=== PATIENT | male | born 1975 | race Caucasian/White ===

== ENCOUNTER 2018-04-14 20:30 | Emergency (ER) | payer OTHER, MEDICAID, SELFPAY ==
[2018-04-14 20:37] VITALS: BP 193/108; PULSE 91; RESP 18; TEMP 37.1; O2SAT 95
--- NOTE | 2018-04-14 20:43 | DI.RAD.S_ITS ---
PROCEDURE: XR CHEST 1V INDICATIONS: chest pain TECHNIQUE: One view of the chest was acquired. COMPARISON: [facility], , CHEST 2 VIEW, 09/11/2007, 11:55. FINDINGS: Surgical changes and devices: Cervical fusion hardware. Lungs and pleura: Lungs are clear. No pleural effusions or pneumothorax. Mediastinum: Mediastinal contours appear normal. Heart size is normal. Bones and chest wall: No suspicious bony lesions. Overlying soft tissues appear unremarkable. IMPRESSION: No acute cardiopulmonary disease. Dictated by: Kimberly Duvall M.D. on 04/14/2018 at 21:43 Approved by: Kimberly Duvall M.D. on 04/14/2018 at 21:43
--- NOTE | 2018-04-14 20:48 | ED.CHESTPAIN ---
HPI - Chest Pain General Chief Complaint: Chest Pain Stated Complaint: states Chest Pains Time Seen by Provider: 04/14/18 20:48 Source: patient Mode of arrival: ambulatory Limitations: no limitations History of Present Illness HPI narrative: The patient presents with upper abdominal and xiphoid level chest pain. Pain started yesterday. He has pain with inspiration. He has a smoker with a smoker's cough. His cough is nonproductive. He has no radiation of chest pain to the upper chest, arm or back. He has no cardiac history. He is a smoker, but has no chronic respiratory illness. He drinks several drinks of alcohol daily. He has no history of liver disease or PUD. The epigastric pain is new and significantly uncomfortable. He has no fever or chills. There is no nausea or emesis. Related Data Home Medications Medication Instructions Recorded Confirmed ibuprofen 800 mg PO BID 04/14/18 04/14/18 nadolol 20 mg PO DAILY 04/14/18 Previous Rx's Medication Instructions Recorded trazodone 50 mg tablet 100 mg PO HS PRN #60 tab 09/20/17 ranitidine HCl [Zantac] 300 mg PO BID #120 tab 04/15/18 Allergies Allergy/AdvReac Type Severity Reaction Status Date / Time varenicline [From CHANTIX] AdvReac Intermediate SUICIDAL Verified 04/14/18 20:59 Review of Systems Review of Systems ROS Unobtainable: All systems reviewed & are unremarkable except as noted in HPI and below Constitutional Denies chills, Denies fever(s), Denies lethargy and Denies weakness Eyes Denies change in vision, Denies eye discharge, Denies irritation and Denies loss of vision Cardiovascular Reports as per HPI, Reports chest pain, Denies irregular heart rhythm, Denies lightheadedness, Denies palpitations, Denies dyspnea, Denies dyspnea on exertion and Denies orthopnea Respiratory Denies cough, Denies dyspnea, Denies dyspnea on exertion and Denies wheezing Gastrointestinal Gastrointestinal: Reports as per HPI, Reports abdominal pain, Denies change in bowel habits, Denies diarrhea, Denies nausea and Denies vomiting Genitourinary Denies dysuria Musculoskeletal Denies back pain Integumentary/Breasts Denies pruritus, Denies erythema, Denies rash and Denies wounds Neurologic Denies loss of vision and Denies weakness Endocrine Denies palpitations Hematologic/Lymphatic Denies easy bruising Allergic/Immunologic Denies wheezing [facility] Medical History Essential hypertension (Chronic 11/29/16) 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) Vitamin D deficiency (Chronic 03/07/17) Mixed 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/17) ADHD (attention deficit hyperactivity disorder) (Chronic Unknown) Anxiety (Chronic Unknown) Cervical spine disease (Chronic Unknown) Chronic back pain (Chronic Unknown) Herpes (Chronic Unknown) Hypertension (Chronic Unknown) Hypertriglyceridemia (Chronic Unknown) Migraines (Chronic Unknown) MRSA (methicillin resistant Staphylococcus aureus) (Resolved Unknown) Surgical History History of neck surgery (Resolved) History of back surgery (Resolved 2000) Hx of neck surgery (Resolved ~2009) Family History Father Hypertension Social History Smoking Status: Current every day smoker Tobacco: How many years used: 20 quit status: considering quitting (Patient stated I was given a smoking cessation handout last time I was here.) second hand exposure: No alcohol intake: current (hard liquor once a month when I watch [employer].) substance use type: marijuana (once or twice a week at the most. It depend on my pain level.) Family History Father Hypertension Social History Smoking Status: Current every day smoker Tobacco: How many years used: 20 quit status: considering quitting (Patient stated I was given a smoking cessation handout last time I was here.) second hand exposure: No alcohol intake: current (hard liquor once a month when I watch [place] fights.) substance use type: marijuana (once or twice a week at the most. It depend on my pain level.) Exam Initial Vital Signs Initial Vital Signs: Vital Signs Temperature 98.7 F 04/14/18 20:37 Pulse Rate 91 H 04/14/18 20:37 Respiratory Rate 18 04/14/18 20:37 Blood Pressure 193/108 H 04/14/18 20:37 Pulse Oximetry 95 04/14/18 20:37 Const General: cooperative and well developed Nutritional Appearance: well nourished Orientation: alert, awake and oriented x3 HENMT Head: normocephalic and atraumatic Nose: external nose normal Face and sinus: face symmetric Mouth: oral mucosae normal and moist mucous membranes Teeth and gingiva: dentition normal Throat: posterior oropharynx normal, tonsils normal and uvula midline Eyes General: appearance normal, both eyes and all related structures Eyelids: eyelids normal Conjunctivae: conjunctivae normal Sclera: sclerae normal ( no icterus) Pupils: PERRL EOM: EOM intact bilaterally Neck Thyroid: nontender Lymphatic: No lymphadenopathy Chest Chest: normal inspection of the chest Resp Effort & Inspection: normal respiratory effort, able to speak in complete sentences, no respiratory distress and no use of accessory muscles Auscultation: clear to auscultation bilaterally, no rales, no rhonchi and no wheezes Cardio Rate: regular rate Rhythm: regular rhythm Heart Sounds: no click, no gallops, no murmurs and no rubs Pulses: normal peripheral pulses GI Inspection: non-distended Palpation: soft, no hepatosplenomegaly and tender ( epigastric tenderness with mild guarding, no rebound.) Auscultation: normal bowel sounds Back/Spine/Pelvis Back: No CVA tenderness Skin General: no rashes or lesions noted, No jaundice and No petechiae Neuro General: alert, oriented x3, gait normal and no focal motor deficits Speech: speech normal Extrem General: full ROM, no clubbing, cyanosis or edema, no pedal edema and no calf tenderness Course Course Narrative: The patient was initially giving Protonix. I did give him narcotics to help alleviate the pain. Prior to discharge the pain is now resolved. his primary source of discomfort is probably gastritis. The ultrasound did reveal fatty liver. Orders Ordered: ED Orders 04/14/18 20:43 XR chest 1V Stat EKG-12 Lead Stat 04/14/18 20:55 Complete Blood Count AUTO DIFF Stat Comprehensive Metabolic Panel Stat Lipase Stat Partial Thromboplastin Time Stat Prothrombin Time INR Stat Troponin & CK Cardiac Panel Stat 04/15/18 00:58 US abdomen complete Stat Discontinued Medications Aspirin (Aspirin Chew) 324 mg PO NOW ONE Stop: 04/14/18 20:44 Last Admin: 04/14/18 20:46 Dose: Not Given Ketorolac Tromethamine (Toradol) 30 mg IV NOW ONE Stop: 04/14/18 20:48 Last Admin: 04/14/18 20:59 Dose: 30 mg Metoclopramide HCl (Reglan) 10 mg IV NOW ONE Stop: 04/15/18 02:36 Last Admin: 04/15/18 02:39 Dose: 10 mg Morphine Sulfate (Morphine) 4 mg IV NOW ONE Stop: 04/14/18 22:22 Last Admin: 04/14/18 22:58 Dose: 4 mg Morphine Sulfate (Morphine) 4 mg IV NOW ONE Stop: 04/15/18 00:59 Last Admin: 04/15/18 01:07 Dose: 4 mg Ondansetron HCl (Zofran) 4 mg IV NOW ONE Stop: 04/14/18 22:56 Last Admin: 04/14/18 22:58 Dose: 4 mg Pantoprazole Sodium (Protonix) 40 mg IV NOW ONE Stop: 04/14/18 20:47 Last Admin: 04/14/18 20:59 Dose: 40 mg Vital Signs - 8 hr 04/14/18 21:27 04/14/18 22:00 04/14/18 22:37 Temperature Pulse Rate 80 77 82 Respiratory Rate 18 14 18 Blood Pressure [Left Arm] 170/102 H 179/107 H 180/108 H Pulse Oximetry 98 98 98 04/14/18 23:30 04/15/18 00:05 04/15/18 00:32 Temperature Pulse Rate 89 77 75 Respiratory Rate 20 17 16 Blood Pressure [Left Arm] 154/91 H 163/107 H 158/98 H Pulse Oximetry 99 97 98 04/15/18 02:11 04/15/18 04:22 Temperature 97.8 F Pulse Rate 81 80 Respiratory Rate 16 16 Blood Pressure [Left Arm] 170/105 H 162/110 H Pulse Oximetry 97 98 MDM - Chest Pain Lab Data Result diagrams: 04/14/18 20:55 04/14/18 20:55 Lab Results 04/14/18 04/14/18 04/14/18 Range/Units 20:55 20:55 20:55 WBC 12.3 H (4.5-11.0) X10^3/uL RBC 5.57 (4.5-5.9) X10^6/uL Hgb 18.7 H (13.5-17.5) g/dL Hct 53.7 H (41-53) % MCV 96.3 (80-100) fL MCH 33.6 (26-34) PG MCHC 34.9 (30-36) % RDW 12.2 (11.6-14.8) % Plt Count 156 (150-400) X10^3/uL Neut % (Auto) Not Reportable Lymph % (Auto) Not Reportable [place] % (Auto) Not Reportable Eos % (Auto) Not Reportable Baso % (Auto) Not Reportable Lymph # (Auto) Not Reportable [place] # (Auto) Not Reportable Baso # (Auto) Not Reportable Seg Neutrophils % 72.0 H (38-70) % Band Neutrophils % 6.0 (3-7) % Lymphocytes % (Manual) 19.0 L (25-45) % Monocytes % (Manual) 1.0 L (2-11) % Eosinophils % (Manual) 2.0 (2-4) % RBC Morphology Normal morphology PT 10.7 (10.1-12.7) SECONDS INR 0.9 (0.9-1.3) APTT 30 (26.4-36.2) SECONDS Sodium 135 L (137-145) mmol/L Potassium 4.5 (3.4-5.1) mmol/L Chloride 101 (98-107) mmol/L Carbon Dioxide 20 L (22-32) mmol/L BUN 14 (9-20) mg/dL Creatinine 0.80 (0.66-1.25) mg/dL Estimated GFR > 60.0 (>60) mL/min BUN/Creatinine Ratio 17.5 (6-22) Glucose 111 H (70-100) mg/dL Calcium 8.4 (8.4-10.2) mg/dL Total Bilirubin 0.9 (0.2-1.3) mg/dL AST 53 (17-59) IU/L ALT 46 (21-72) IU/L Alkaline Phosphatase 104 (38-126) U/L Total Creatine Kinase 158 (55-170) U/L CK-MB (CK-2) 3.41 H (<2.37) ng/mL CK-MB (CK-2) Rel Index 2.2 (1.5-5.0) % Troponin I < 0.012 (0.01-0.034) ng/mL Total Protein 7.8 (6.3-8.2) g/dL Albumin 4.4 (3.5-5.0) g/dL Globulin 3.4 (1.7-4.1) g/dL Albumin/Globulin Ratio 1.3 (1.0-2.8) Lipase 289 (23-300) U/L Imaging Data abdominal ultrasound:: Radiologist's impression: fatty liver. Normal gallbladder. No significant abnormalities. ECG Data Attestation: I personally reviewed and interpreted this ECG as follows: ( normal sinus rhythm rate 81 bpm. Minimal criteria for LVH. No acute ST T wave changes. Normal intervals. No ectopy.) Discharge Plan Departure Patient Disposition: Home Clinical Impression: Fatty liver Gastritis Qualifiers: Gastritis type: unspecified gastritis Chronicity: acute Gastritis bleeding: without bleeding Qualified Code(s): K29.00 - Acute gastritis without bleeding Instructions: DI for Gastritis Activity Restrictions/Additional Instructions: I recommended to avoid alcohol intake. I would also recommend a low-fat diet. Zantac 300 mg 2 times daily. Recheck with her doctor in about 1 month. Return here if obviously worse. Prescriptions: New ranitidine HCl [Zantac] 150 mg tablet 300 mg PO BID Qty: 120 RF: 0 No Action trazodone 50 mg tablet 100 mg PO HS PRN (Reason: insomnia) Qty: 60 RF: 0 ibuprofen 800 mg Tablet 800 mg PO BID RF: 0 nadolol 20 mg tablet 20 mg PO DAILY RF: 0 Referrals: Diana Arndt MD [Primary Care Provider] -
[2018-04-14] MEDS: PANTOPRAZOLE 40 MG VIAL IV (20:59)
[2018-04-14] MEDS: KETOROLAC 60 MG/2 ML VIAL 30 MG IV (20:59)
[2018-04-14 21:11] LABS: INR 0.9 (0.9-1.3)
[2018-04-14 21:14] LABS: PTT Partial Thromboplastin Tim 30 SECONDS (26.4-36.2)
[2018-04-14 21:15] LABS: Alanine Aminotransferase 46 IU/L (21-72); Albumin 4.4 g/dL (3.5-5.0); Albumin Globulin Ratio 1.3 (1.0-2.8); Alkaline Phosphatase 104 U/L (38-126); Aspartate Aminotransferase 53 IU/L (17-59); BUN Creatinine Ratio 17.5 (6-22); Bilirubin Total 0.9 mg/dL (0.2-1.3); Blood Urea Nitrogen 14 mg/dL (9-20); Calcium 8.4 mg/dL (8.4-10.2); Carbon Dioxide 20 mmol/L (22-32); Chloride 101 mmol/L (98-107); Creatine Kinase 158 U/L (55-170); Estimated Glomerular Filt Rate > 60.0 mL/min (>60); Globulin 3.4 g/dL (1.7-4.1); Glucose 111 mg/dL (70-100); Lipase 289 U/L (23-300); Sodium 135 mmol/L (137-145); Total Protein 7.8 g/dL (6.3-8.2)
[2018-04-14 21:19] LABS: HEMOLYSIS 206 (0-50)
[2018-04-14 21:21] LABS: Potassium 4.5 mmol/L (3.4-5.1)
[2018-04-14 21:23] LABS: Prothrombin Time 10.7 SECONDS (10.1-12.7)
[2018-04-14 21:27] VITALS: BP 170/102; PULSE 80; RESP 18; O2SAT 98
[2018-04-14 21:27] LABS: Troponin I < 0.012 ng/mL (0.01-0.034)
[2018-04-14 21:30] LABS: CKMB % Relative Index 2.2 % (1.5-5.0); Creatine Kinase MB 3.41 ng/mL (<2.37)
[2018-04-14 22:00] VITALS: BP 179/107; PULSE 77; RESP 14; O2SAT 98
[2018-04-14 22:17] LABS: Hematocrit 53.7 % (41-53); Hemoglobin 18.7 g/dL (13.5-17.5); Platelet Count 156 X10^3/uL (150-400); Red Blood Cell Count 5.57 X10^6/uL (4.5-5.9)
[2018-04-14 22:18] LABS: Mean Corpuscular HGB Conc 34.9 % (30-36); Mean Corpuscular Hemoglobin 33.6 PG (26-34); Mean Corpuscular Volume 96.3 fL (80-100); Red Cell Distribution Width 12.2 % (11.6-14.8)
[2018-04-14 22:19] LABS: Add Manual Diff / Slide Review YES; White Blood Cell Count 12.3 X10^3/uL (4.5-11.0)
[2018-04-14 22:37] VITALS: BP 180/108; PULSE 82; RESP 18; O2SAT 98
[2018-04-14] MEDS: ONDANSETRON 4 MG/2 ML INJ IV (22:58)
[2018-04-14] MEDS: MORPHINE 4 MG/ML INJ IV (22:58)
[2018-04-14 23:08] LABS: RBC Morphology Normal Morphology
[2018-04-14 23:30] VITALS: BP 154/91; PULSE 89; RESP 20; O2SAT 99
[2018-04-15 00:05] VITALS: BP 163/107; PULSE 77; RESP 17; O2SAT 97
[2018-04-15 00:32] VITALS: BP 158/98; PULSE 75; RESP 16; O2SAT 98
--- NOTE | 2018-04-15 00:58 | DI.US.S_ITS ---
PROCEDURE: US ABDOMEN COMPLETE INDICATIONS: EPIGASTRIC PAIN; ELEVATED LFTS TECHNIQUE: Real-time scanning was performed of the abdominal and retroperitoneal organs, with image documentation. COMPARISON: None. FINDINGS: Liver: Liver is normal in size and increased in echogenicity. Gallbladder: No gallstones, gallbladder wall thickening, or pericholecystic fluid. Biliary ducts: Intrahepatic bile ducts are non-dilated. Extrahepatic bile duct caliber measures 6 mm. Normal is 6-7 mm or less in diameter, or 10 mm or less post-cholecystectomy. Pancreas: Not well-seen due to bowel gas. Spleen: Spleen is normal in size and homogeneous in echotexture. Kidneys: Right kidney measures 11.6 cm long; left kidney measures 1.1 cm long. No hydronephrosis. Aorta: Not well-seen due to bowel gas. Iliacs: Not well-seen due to bowel gas. IVC: Not well-seen. Miscellaneous: No free abdominal fluid. IMPRESSION: 1. Limited study demonstrates no definite acute sonographic abnormality in the abdomen. 2. No evidence of cholelithiasis or cholecystitis. 3. Increased hepatic echogenicity compatible with steatosis. Dictated by: Delmar Mcqueen M.D. on 04/15/2018 at 13:26 Approved by: Delmar Mcqueen M.D. on 04/15/2018 at 13:27
[2018-04-15] MEDS: MORPHINE 4 MG/ML INJ IV (01:07)
[2018-04-15 02:11] VITALS: BP 170/105; PULSE 81; RESP 16; O2SAT 97
[2018-04-15] MEDS: METOCLOPRAMIDE 10 MG/2 ML INJ IV (02:39)
[2018-04-15 04:22] VITALS: BP 162/110; PULSE 80; RESP 16; TEMP 36.6; O2SAT 98
[2018-04-15 04:51] VITALS: BP 162/110; PULSE 80; RESP 16; TEMP 36.6; O2SAT 98
== END 2018-04-15 04:53 | disposition home or self-care (01) ==
PROVIDERS: Emergency Provider Emergency Medicine; PCP Family Medicine
DX: K76.0 Fatty (change of) liver, not elsewhere classified (principal); K29.00 Acute gastritis without bleeding
CPT/HCPCS: 36591; 71045; 76700; 80053; 82550; 82553; 83690; 84484; 85025; 85610; 85730; 93005; 96374; 96375; 96376; 99285; C9113; J1885; J2270; J2405; J2765

== ENCOUNTER 2018-11-04 18:54 | Emergency (ER) | payer OTHER, MEDICAID, SELFPAY ==
[2018-11-04 19:06] VITALS: BP 200/122; PULSE 92; RESP 16; TEMP 36.5; O2SAT 97; BMI 35.5
--- NOTE | 2018-11-04 21:16 | ED_ITS ---
HPI - Nausea/Vomiting/Diarrhea General Chief complaint: Nausea/Vomiting/Diarrhea Stated complaint: vomiting with some blood,diarrhea x month, pain Time Seen by Provider: 11/04/18 19:11 Source: patient Mode of arrival: ambulatory Limitations: no limitations History of Present Illness HPI Narrative: Patient comes emergency department complaining of vomiting and diarrhea for about the last 5 days. Patient states that he has been drinking alcohol heavily for the last for 5 months, and last drink was at noon. He has not had any sick contacts. No fevers chills. Patient states that he has body aches. No rhinorrhea or cough. No shortness of breath. No abdominal pain. Patient states that he has had a very mild amount of blood tinging in his vomit intermittently for the last 2 days, but that this does not happen every time he vomits. He states that his diarrhea has been ?dark?. No black tarry stools. No camping or exotic travel. No new medications. Patient states he has a history of hypertension and hyperlipidemia, but is not on anything for either of these right now. He states he stop taking lisinopril about a year ago because it gave him a bad cough. Related Data Home Medications Medication Instructions Recorded Confirmed ibuprofen 800 mg PO BID 04/14/18 04/14/18 nadolol 20 mg PO DAILY 04/14/18 Previous Rx's Medication Instructions Recorded trazodone 50 mg tablet 100 mg PO HS PRN #60 tab 09/20/17 ranitidine HCl [Zantac] 300 mg PO BID #120 tab 04/15/18 omeprazole 20 mg PO DAILY #60 cap 11/05/18 ondansetron 4 mg PO Q6H PRN #14 tab 11/05/18 Allergies Allergy/AdvReac Type Severity Reaction Status Date / Time varenicline [From CHANTIX] AdvReac Intermediate SUICIDAL Verified 04/14/18 20:59 Review of Systems Constitutional Constitutional: Denies chills, Denies fatigue, Denies fever(s), Denies frequent falls, Denies lethargy and Denies weakness Eyes Eyes: Denies change in vision, Denies eye discharge, Denies irritation and Denies loss of vision ENT Ears, Nose, Mouth, and Throat: Denies change in voice, Denies dizziness, Denies neck pain, Denies sore throat and Denies throat swelling Cardiovascular Cardiovascular: Denies chest pain, Denies irregular heart rhythm, Denies lig htheadedness, Denies palpitations, Denies dyspnea, Denies dyspnea on exertion and Denies orthopnea Respiratory Respiratory: Denies cough, Denies dyspnea, Denies dyspnea on exertion and Denies wheezing Gastrointestinal Gastrointestinal: Denies abdominal pain, Denies change in bowel habits, Reports diarrhea, Reports nausea and Reports vomiting Genitourinary Genitourinary: Denies hematuria, Denies flank pain, Denies urinary incontinence and Denies urinary urgency Musculoskeletal Musculoskeletal: Denies back pain, Denies muscle weakness, Denies neck pain, Denies numbness and Denies tingling Integumentary/Breasts Skin/Breast: Denies pruritus, Denies erythema, Denies rash and Denies wounds Neurologic Neurologic: Denies behavioral changes, Denies confusion, Denies dizziness, Denies frequent falls, Denies loss of vision, Denies numbness, Denies tingling and Denies weakness Psychiatric Psychiatric: Denies anxiety, Denies behavioral changes, Denies confusion, Denies depression, Denies homicidal ideation and Denies suicidal ideation Endocrine Endocrine: Denies fatigue, Denies flushing and Denies palpitations Hematologic/Lymphatic Hematologic/Lymphatic: Denies easy bruising Allergic/Immunologic Allergic/Immunologic: Denies urticaria, Denies throat swelling and Denies wheezi ng [facility] Medical History ADHD (attention deficit hyperactivity disorder) (Chronic Unknown) Anxiety (Chronic Unknown) 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) Cervical spine disease (Chronic Unknown) Chronic back pain (Chronic Unknown) Essential hypertension (Chronic 11/29/16) Herpes (Chronic Unknown) Hypertension (Chronic Unknown) Hypertriglyceridemia (Chronic Unknown) Migraines (Chronic Unknown) Mixed 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) MRSA (methicillin resistant Staphylococcus aureus) (Resolved Unknown) Vitamin D deficiency (Chronic 03/07/17) Surgical History History of back surgery (Resolved 2000) History of neck surgery (Resolved) Hx of neck surgery (Resolved ~2009) Family History Father Hypertension Social History Smoking Status: Current every day smoker Tobacco: How many years used: 20 quit status: considering quitting (Patient stated I was given a smoking cessation handout last time I was here.) second hand exposure: No alcohol intake: current (hard liquor once a month when I watch [employer] fights.) substance use type: marijuana (once or twice a week at the most. It depend on my pain level.) Family History Father Hypertension Social History Smoking Status: Current every day smoker Tobacco: How many years used: 20 quit status: considering quitting (Patient stated I was given a smoking cessation handout last time I was here.) second hand exposure: No alcohol intake: current (hard liquor once a month when I watch [employer] fights.) substance use type: marijuana (once or twice a week at the most. It depend on my pain level.) Exam Initial Vital Signs Initial Vital Signs: Vital Signs Temperature 97.7 F 11/04/18 19:06 Pulse Rate 92 H 11/04/18 19:06 Respiratory Rate 16 11/04/18 19:06 Blood Pressure 200/122 H 11/04/18 19:06 Pulse Oximetry 97 11/04/18 19:06 Const General: cooperative and well developed Nutritional Appearance: well nourished Orientation: alert, awake, oriented x3 and not confused HENMT Head: normocephalic and atraumatic Ears: TM's normal bilaterally Nose: external nose normal and No nasal discharge Face and sinus: face symmetric and No dry mucous membranes Mouth: oral mucosae normal and moist mucous membranes Teeth and gingiva: dentition normal Eyes General: appearance normal, both eyes and all related structures Eyelids: eyelids normal Conjunctivae: conjunctivae normal Sclera: sclerae normal Pupils: PERRL EOM: EOM intact bilaterally Neck Neck: normal visual inspection, trachea midline, No lymphadenopathy, No midline deformity and No JVD Lymphatic: No lymphedema Chest Chest: normal inspection of the chest Resp Effort & Inspection: normal respiratory effort, able to speak in complete sentences, no respiratory distress and no use of accessory muscles Auscultation: clear to auscultation bilaterally, no rales, no rhonchi and no wheezes Cardio Rate: regular rate Rhythm: regular rhythm Heart Sounds: no click, no gallops, no murmurs and no rubs Pulses: normal peripheral pulses GI Inspection: non-distended Palpation: soft, no hepatosplenomegaly, No guarding, No pulsatile mass and No tender Auscultation: normal bowel sounds Back/Spine/Pelvis Back: No CVA tenderness Cervical Spine: cervical ROM normal and No pain with cervical ROM Thoracic/Lumbar Spine: thoracic and lumbar spine normal to inspection Skin General: no rashes or lesions noted, No jaundice and No petechiae Neuro General: alert, oriented x3, gait normal and no focal motor deficits Speech: speech normal Extrem General: full ROM, no clubbing, cyanosis or edema, no pedal edema and no calf tenderness Psych Appearance: well kempt Mental Status: mental status grossly normal Attitude: cooperative Thought Content: normal and suicidality Judgment: judgment good Course Course Course Narrative: Patient was given a banana bag, Protonix and Zofran, and worked up with labs, which were unremarkable. He was found to be feeling much better after symptomatic treatment and had no bleeding in the ED. There is no evidence of variceal hemorrhage at this time. I have started the pt on omeprazole and have advised the pt to get help with his drinking. Orders Ordered: Discontinued Medications Magnesium Sulfate 2 gm/ Folic Acid 1 mg/ Thiamine HCl 100 mg / Multivitamins 10 ml/ Sodium Chloride 1,015.2 mls @ 1,000 mls/hr IV NOW ONE Stop: 11/04/18 22:15 Last Infusion: 11/05/18 00:38 Dose: 0 mls/hr Documented by: Admin: 11/04/18 22:59 Dose: 1,000 mls/hr Documented by: STEPHANIE Ondansetron HCl (Zofran) 4 mg IV NOW ONE Stop: 11/04/18 21:17 Last Admin: 11/04/18 21:43 Dose: 4 mg Documented by: STEPHANIE Pantoprazole Sodium (Protonix) 80 mg IV NOW ONE Stop: 11/04/18 21:40 Last Admin: 11/04/18 21:54 Dose: 80 mg Documented by: STEPHANIE Prochlorperazine (Compazine) 10 mg IV NOW ONE Stop: 11/05/18 00:27 Last Admin: 11/05/18 00:39 Dose: 10 mg Documented by: ADRIEN Vital Signs Vital signs: Vital Signs - 8 hr 11/04/18 19:06 Temperature 97.7 F Pulse Rate 92 H Respiratory Rate 16 Blood Pressure 200/122 H Pulse Oximetry 97 MDM - Nausea/Vomiting/Diarrhea Medical Records Attestation: I reviewed the patient's medical records. Lab Data Attestation: I reviewed the patient's lab results. Result diagrams: 11/04/18 19:30 11/04/18 19:30 Labs: Lab Results 11/04/18 11/04/18 11/04/18 Range/Units 19:30 19:30 22:35 WBC 8.4 (4.5-11.0) X10^3/uL RBC 5.63 (4.5-5.9) X10^6/uL Hgb 19.6 H (13.5-17.5) g/dL Hct 55.0 H (41-53) % MCV 97.7 (80-100) fL MCH 34.8 H (26-34) PG MCHC 35.6 (30-36) % RDW 12.5 (11.6-14.8) % Plt Count 170 (150-400) X10^3/uL Neut % (Auto) 69.6 (50-75) % Lymph % (Auto) 22.0 L (25-40) % [place]hea % (Auto) 7.5 (3-14) % Eos % (Auto) 0.5 L (2-4) % Baso % (Auto) 0.4 (0-2) % Neut # (Auto) 5900 (1772-6349) /uL Lymph # (Auto) 1900 (4279-7803) /uL Rhea # (Auto) 600 (0-900) /uL Eos # (Auto) 0 (0-450) /uL Baso # (Auto) 0 (0-100) /uL Sodium 137 (137-145) mmol/L Potassium 3.8 (3.4-5.1) mmol/L Chloride 99 (98-107) mmol/L Carbon Dioxide 27 (22-32) mmol/L BUN 15 (9-20) mg/dL Creatinine 1.00 (0.66-1.25) mg/dL Estimated GFR > 60.0 (>60) mL/min BUN/Creatinine Ratio 15.0 (6-22) Glucose 126 H (70-100) mg/dL Calcium 8.8 (8.4-10.2) mg/dL Total Bilirubin 0.9 (0.2-1.3) mg/dL AST 71 H (17-59) IU/L ALT 68 (21-72) IU/L Alkaline Phosphatase 117 (38-126) U/L Total Protein 7.5 (6.3-8.2) g/dL Albumin 4.3 (3.5-5.0) g/dL Globulin 3.2 (1.7-4.1) g/dL Albumin/Globulin Ratio 1.3 (1.0-2.8) Lipase 162 (23-300) U/L Influenza A & B (PCR) Negative (Negative) Discharge Plan Departure Patient Disposition: Home Clinical Impression: Gastroenteritis Gastritis due to alcohol without hemorrhage Qualifiers: Chronicity: acute Qualified Code(s): K29.20 - Alcoholic gastritis without bleeding Discharge Date/Time: 11/05/18 01:13 Instructions: DI for Vomiting -- Adult, DI for Alcoholic Gastritis Activity Restrictions/Additional Instructions: Your prescriptions have been electronically transmitted to [facility]. Please speak with your primary doctor to get help with your drinking. Prescriptions: New omeprazole 20 mg capsule,delayed release(DR/EC) 20 mg PO DAILY Qty: 60 RF: 0 ondansetron 4 mg tablet,disintegrating 4 mg PO Q6H PRN (Reason: nausea and vomiting) Qty: 14 RF: 0 No Action trazodone 50 mg tablet 100 mg PO HS PRN (Reason: insomnia) Qty: 60 RF: 0 ibuprofen 800 mg Tablet 800 mg PO BID RF: 0 nadolol 20 mg tablet 20 mg PO DAILY RF: 0 ranitidine HCl [Zantac] 150 mg tablet 300 mg PO BID Qty: 120 RF: 0 Referrals: Diana Arndt MD [Primary Care Provider] -
[2018-11-04 21:27] LABS: Add Manual Diff / Slide Review NO; Basophils Absolute Auto 0 /uL (0-100); Basophils Percent Auto 0.4 % (0-2); Eosinophils Absolute Auto 0 /uL (0-450); Eosinophils Percent Auto 0.5 % (2-4); Hemoglobin 19.6 g/dL (13.5-17.5); Lymphocytes Absolute Auto 1900 /uL (1100-4500); Mean Corpuscular HGB Conc 35.6 % (30-36); Mean Corpuscular Hemoglobin 34.8 PG (26-34); Mean Corpuscular Volume 97.7 fL (80-100); Monocytes Absolute Auto 600 /uL (0-900); Monocytes Percent Auto 7.5 % (3-14); Neutrophils Absolute Auto 5900 /uL (1500-7000); Neutrophils Percent Auto 69.6 % (50-75); Platelet Count 170 X10^3/uL (150-400); Red Blood Cell Count 5.63 X10^6/uL (4.5-5.9); Red Cell Distribution Width 12.5 % (11.6-14.8); White Blood Cell Count 8.4 X10^3/uL (4.5-11.0)
[2018-11-04 21:33] LABS: Alanine Aminotransferase 68 IU/L (21-72); Albumin 4.3 g/dL (3.5-5.0); Albumin Globulin Ratio 1.3 (1.0-2.8); Alkaline Phosphatase 117 U/L (38-126); Aspartate Aminotransferase 71 IU/L (17-59); Bilirubin Total 0.9 mg/dL (0.2-1.3); Blood Urea Nitrogen 15 mg/dL (9-20); Calcium 8.8 mg/dL (8.4-10.2); Carbon Dioxide 27 mmol/L (22-32); Chloride 99 mmol/L (98-107); Estimated Glomerular Filt Rate > 60.0 mL/min (>60); Globulin 3.2 g/dL (1.7-4.1); Glucose 126 mg/dL (70-100); HEMOLYSIS 62 (0-50); Lipase 162 U/L (23-300); Sodium 137 mmol/L (137-145); Total Protein 7.5 g/dL (6.3-8.2)
[2018-11-04 21:34] LABS: Potassium 3.8 mmol/L (3.4-5.1)
[2018-11-04] MEDS: ONDANSETRON 4 MG/2 ML INJ IV (21:43)
[2018-11-04 21:45] VITALS: BP 202/113; PULSE 82; RESP 15; O2SAT 95
[2018-11-04] MEDS: PANTOPRAZOLE 40 MG VIAL 80 MG IV (21:54)
[2018-11-04 22:57] LABS: Influenza A and B by PCR Rapid Negative (Negative)
[2018-11-04] MEDS: MAGNESIUM SULFATE 2 GM, FOLIC ACID 1 MG, THIAMINE 100 MG, MULTIVITAMIN 10 ML in SODIUM ... IV (22:59)
[2018-11-04 23:00] VITALS: BP 194/113; PULSE 87; RESP 20; O2SAT 95
[2018-11-05 00:33] VITALS: BP 188/109; PULSE 82; RESP 18; TEMP 36.5; O2SAT 97
[2018-11-05] MEDS: PROCHLORPERAZINE 10 MG/2 ML VIAL IV (00:39)
[2018-11-05 01:08] VITALS: BP 188/109; PULSE 81; RESP 15
== END 2018-11-05 01:13 | disposition home or self-care (01) ==
PROVIDERS: Emergency Provider Emergency Medicine; PCP Family Medicine
DX: K52.9 Noninfective gastroenteritis and colitis, unspecified (principal); K29.20 Alcoholic gastritis without bleeding
CPT/HCPCS: 36591; 80053; 83690; 85025; 87400; 87502; 96361; 96374; 96375; 99283; 99284; C9113; J0780; J2405; J3475

== ENCOUNTER 2018-11-07 12:03 | Emergency (ER) | payer OTHER, MEDICAID, SELFPAY ==
[2018-11-07 12:08] VITALS: BP 158/88; PULSE 110; RESP 16; TEMP 36.8; O2SAT 95; BMI 35.5
--- NOTE | 2018-11-07 12:37 | ED_ITS ---
HPI - Recheck/Abnormal Lab/Rx <CARROLL Lema - Last Filed: 11/07/18 22:19> General Chief Complaint: Recheck/Abnormal Lab/Rx Stated Complaint: gastritis x17 days Time Seen by Provider: 11/07/18 12:18 Source: patient Mode of arrival: ambulatory Limitations: no limitations History of Present Illness HPI narrative: 43-year-old male a known history of ETOH abuse, presents emergency department today complaining of diarrhea for the past 2.5 weeks. He was seen here previously on 04/14/18 and 11/05/18 in diagnosed with gastritis both times. He states his initials symptoms were abdominal cramping, and vomiting. His vomiting resolved 4 days ago but he complains of continued cramping that is ?all over his body ?in diarrhea with occasional bright red blood within his stool. Patient states he has a burning 2/10 epigastric pain. He states he has not consumed any alcohol since 4 days ago-denies tremors, headaches, seizures, or other concerning symptoms. He does state occasionally he has episodes of diaphoresis. Denies fevers, chills, syncope, vision changes, chest pain, shortness of breath, vomiting, nausea, swelling in his legs, orthopnea. Related Data Home Medications Medication Instructions Recorded Confirmed ibuprofen 800 mg PO BID 04/14/18 11/07/18 nadolol 20 mg PO DAILY 04/14/18 amlodipine 10 mg PO DAILY 11/07/18 11/07/18 hydrochlorothiazide 25 mg PO DAILY 11/07/18 11/07/18 lisinopril 10 mg PO DAILY 11/07/18 11/07/18 trazodone 100 mg PO DAILY 11/07/18 11/07/18 Previous Rx's Medication Instructions Recorded omeprazole 20 mg PO DAILY #60 cap 11/05/18 ondansetron 4 mg PO Q6H PRN #14 tab 11/05/18 omeprazole 40 mg PO DAILY #30 cap 11/07/18 Allergies Allergy/AdvReac Type Severity Reaction Status Date / Time varenicline [From CHANTIX] AdvReac Intermediate SUICIDAL Verified 04/14/18 20:59 Review of Systems <CARROLL Lema - Last Filed: 11/07/18 22:19> Review of Systems Narrative: REVIEW OF SYSTEMS: GENERAL: Denies fever, chills, malaise, or wt. loss. HENT: No head trauma, sore throat, or dysphagia. EYES: No loss of vision, double vision, eye pain, or irritation. CARDIOVASCULAR: No chest pain, palpitations, or orthopnea. RESPIRATORY: No shortness of breath or cough. GASTROINTESTINAL: Complains of diarrhea, see HPI GENITOURINARY: No flank pain, urinary incontinence, hesitancy, frequency, or dysuria. MUSCULOSKELETAL: No pain, weakness, or trauma. INTEGUMENTARY: No rash, lesions, or pruritus. NEURO: No numbness, tingling, memory loss, confusion, or headaches. PSYCH: No behavior or mood changes. 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) MRSA (methicillin resistant Staphylococcus aureus) (Resolved Unknown) Vitamin D deficiency (Chronic 03/07/17) Surgical History History of back surgery (Resolved 2000) History of neck surgery (Resolved) Hx of neck surgery (Resolved ~2009) Family History Father Hypertension Social History Smoking Status: Current every day smoker Tobacco: How many years used: 20 quit status: considering quitting (Patient stated I was given a smoking cessation handout last time I was here.) second hand exposure: No alcohol intake: current (hard liquor once a month when I watch [employer] fights.) substance use type: marijuana (once or twice a week at the most. It depend on my pain level.) Family History Father Hypertension Social History Smoking Status: Current every day smoker Tobacco: How many years used: 20 quit status: considering quitting (Patient stated I was given a smoking cessation handout last time I was here.) second hand exposure: No alcohol intake: current (hard liquor once a month when I watch [employer] fights.) substance use type: marijuana (once or twice a week at the most. It depend on my pain level.) Exam <CARROLL Lema - Last Filed: 11/07/18 22:19> Initial Vital Signs Initial Vital Signs: Vital Signs Temperature 98.2 F 11/07/18 12:08 Pulse Rate 110 H 11/07/18 12:08 Respiratory Rate 16 11/07/18 12:08 Blood Pressure 158/88 H 11/07/18 12:08 Pulse Oximetry 95 11/07/18 12:08 PHYSICAL EXAMINATION: GENERAL: Well groomed, alert, and cooperative. Answers questions promptly and appropriately. Vital signs noted. HENT: Normocephalic, atraumatic. Hearing intact. Oral mucosa is pink and moist. EYES: Conjunctiva pink, sclera white, no periorbital swelling. CARDIOVASCULAR: S1 and S2 sounds normal. Regular rate and rhythm, no murmurs, clicks, or bruits. No pedal edema. RESPIRATORY: Normal respiratory rate, trachea midline, airway patent. No stridor, nasal flaring or accessory muscle use. Lungs are clear in all shah without wheeze, rhonchi, or crackles. GASTROINTESTINAL: Bowel sounds normoactive. Abdomen is soft and epigastric tenderness noted on palpation. No rebound tenderness No organomegaly, no palpable masses. RECTAL: Rectal examination was done, stool guaiac was positive for blood. Examination was performed with ROMEL García at bedside. Patient tolerated this well, no masses were palpated. GENITALURINARY: No flank tenderness. MUSCULOSKELETAL: Normal gait and coordination. Equal tone and mass bilaterally. EXTREMITIES: CMS intact, no pedal edema. SKIN: Warm, dry, soft, appropriate color for ethnicity. No lesions, rashes, or wounds. NEURO: Alert and Oriented X 3. Good coordination. No ataxia, or sensory deficits, or cognitive issues. PSYCH: Appropriate affect and mood. <Maddie Quinones MD - Last Filed: 11/08/18 07:11> Initial Vital Signs Initial Vital Signs: Vital Signs Temperature 98.2 F 11/07/18 12:08 Pulse Rate 110 H 11/07/18 12:08 Respiratory Rate 16 11/07/18 12:08 Blood Pressure 158/88 H 11/07/18 12:08 Pulse Oximetry 95 11/07/18 12:08 Course <CARROLL Lema - Last Filed: 11/07/18 22:19> Course Course Narrative: Patient was noted to have tachycardia on arrival, however this was corrected with administration of fluids. Patient stated he was feeling better after administration of fluids. Counseling was given to patient about the need to contact the surgeon about endoscopy and colonoscopy. Patient understood the severity of the referral. No concern for alcohol DTs as patient CIWA score was 0 during his emergency department stay. Orders Ordered: Discontinued Medications Sodium Chloride (Normal Saline 0.9%) 1,000 mls @ 1,000 mls/hr IV BOLUS ONE Stop: 11/07/18 13:33 Last Infusion: 11/07/18 14:08 Dose: 0 mls/hr Documented by: Admin: 11/07/18 12:43 Dose: 1,000 mls/hr Documented by: SCANAPO Pantoprazole Sodium (Protonix) 40 mg IV NOW ONE Stop: 11/07/18 12:35 Last Admin: 11/07/18 12:43 Dose: 40 mg Documented by: SCANAPO Consultations Consultation #1: Patient staffed with Dr. Quinones. Vital Signs Vital signs: Vital Signs - 8 hr 11/07/18 14:35 Pulse Rate 90 Respiratory Rate 18 Blood Pressure [Left Arm] 138/87 Pulse Oximetry 96 <Maddie Quinones MD - Last Filed: 11/08/18 07:11> Orders Ordered: Discontinued Medications Sodium Chloride (Normal Saline 0.9%) 1,000 mls @ 1,000 mls/hr IV BOLUS ONE Stop: 11/07/18 13:33 Last Infusion: 11/07/18 14:08 Dose: 0 mls/hr Documented by: Admin: 11/07/18 12:43 Dose: 1,000 mls/hr Documented by: SCANAPO Pantoprazole Sodium (Protonix) 40 mg IV NOW ONE Stop: 11/07/18 12:35 Last Admin: 11/07/18 12:43 Dose: 40 mg Documented by: SCANAPO Vital Signs Vital signs: Vital Signs - 8 hr 11/07/18 14:35 Pulse Rate 90 Respiratory Rate 18 Blood Pressure [Left Arm] 138/87 Pulse Oximetry 96 MDM - Recheck/Abnormal Lab/Rx <CARROLL Lema - Last Filed: 11/07/18 22:19> Medical Records Attestation: I reviewed the patient's medical records. Lab Data Attestation: I reviewed the patient's lab results. Result diagrams: 11/07/18 12:30 11/07/18 12:30 Labs: Lab Results 11/07/18 11/07/18 11/07/18 Range/Units 12:30 12:30 13:26 WBC 11.3 H (4.5-11.0) X10^3/uL RBC 5.24 (4.5-5.9) X10^6/uL Hgb 18.2 H (13.5-17.5) g/dL Hct 51.5 (41-53) % MCV 98.4 (80-100) fL MCH 34.7 H (26-34) PG MCHC 35.3 (30-36) % RDW 12.7 (11.6-14.8) % Plt Count 147 L (150-400) X10^3/uL Neut % (Auto) 85.9 H (50-75) % Lymph % (Auto) 10.3 L (25-40) % Rains % (Auto) 3.2 (3-14) % Eos % (Auto) 0.2 L (2-4) % Baso % (Auto) 0.4 (0-2) % Neut # (Auto) 9700 H (3376-3254) /uL Lymph # (Auto) 1200 (3730-6847) /uL Rains # (Auto) 400 (0-900) /uL Eos # (Auto) 0 (0-450) /uL Baso # (Auto) 0 (0-100) /uL Sodium 138 (137-145) mmol/L Potassium 3.2 L (3.4-5.1) mmol/L Chloride 100 (98-107) mmol/L Carbon Dioxide 25 (22-32) mmol/L BUN 16 (9-20) mg/dL Creatinine 1.30 H (0.66-1.25) mg/dL Estimated GFR > 60.0 (>60) mL/min BUN/Creatinine Ratio 12.3 (6-22) Glucose 142 H (70-100) mg/dL Calcium 9.5 (8.4-10.2) mg/dL Total Bilirubin 1.2 (0.2-1.3) mg/dL AST 79 H (17-59) IU/L ALT 64 (21-72) IU/L Alkaline Phosphatase 103 (38-126) U/L Total Protein 7.4 (6.3-8.2) g/dL Albumin 4.3 (3.5-5.0) g/dL Globulin 3.1 (1.7-4.1) g/dL Albumin/Globulin Ratio 1.4 (1.0-2.8) Lipase 356 H D (23-300) U/L C. difficile Tox (PCR) Cancelled Urine Dip Bedside Urine Glucose Negative Bedside Urine Bilirubin - Negative Bedside Urine Ketone - Negative Urine Specific [place] 1.005 Bedside Urine Occult Blood - Negative Bedside Urine pH 6.0 Bedside Urine Protein - Negative Bedside Urine Urobilinogen - Negative Bedside Urine Nitrite - Negative Bedside Urine Leukocytes - Negative Esterase Imaging Data CT scan - abdomen: Radiologist's impression: [place] [address] CT Scan Report Signed Patient: Alex Peoples [facility]#: [id number] : 1975Acct:[id number] Age/Sex: 43 / MDate of Service: 11/07/18 Loc: ED Accession Number: [id number] Procedure: CT abdomen pelvis w con Ordering Provider: Rhonda Ferreira PROCEDURE: CT ABDOMEN PELVIS W CON INDICATIONS: Epigastric abd px x 3 weeks, 3rd visit to ED, bloody stool TECHNIQUE: After the administration of intravenous contrast, 5 mm thick sections acquired from the diaphragm to the symphysis. 5 mm coronal and sagittal reformats were acquired. For radiation dose reduction, the following was used: automated exposure control, adjustment of mA and/or kV according to patient size. COMPARISON: None. FINDINGS: Image quality: Excellent. ABDOMEN: Lung bases: Lung bases are clear. Heart size is normal. Solid organs: Diffuse hepatic steatosis with enlargement of the left lobe of the liver. No focal suspicious liver mass. Gallbladder is unremarkable. Biliary system is non dilated. Pancreas enhances normally. Spleen is normal in size and enhancement. No adrenal nodules. Kidneys demonstrate normal size and enhancement, without hydronephrosis. Peritoneum and bowel: Bowel loops demonstrate normal wall thickness and caliber. No free fluid or air. Sigmoid diverticulosis without evidence of diverticulitis. Nodes and vessels: No retroperitoneal or mesenteric adenopathy by size criteria. Aorta and inferior vena cava are normal in size. Miscellaneous: No ventral hernias. PELVIS: Genitourinary: Bladder wall thickness is normal. Miscellaneous: Bilateral inguinal hernias containing fat. Bones: No suspicious bony lesions. No vertebral body compression fractures. Calcified right paracentral disc protrusion at L5-S1 significantly impinges on the right S1 and possibly S2 nerve roots in the right lateral recess. IMPRESSION: 1. Diffuse hepatic steatosis with enlargement of the left lobe of the liver. 2. Sigmoid diverticulosis. 3. Calcified right paracentral disc protrusion at L5-S1 impinges on S1 and possibly S2 nerve roots in the right lateral recess. 4. Bilateral inguinal hernias containing fat. Dictated by: Jackson Turner M.D. on 11/07/2018 at 13:15 Approved by: Jackson Turner M.D. on 11/07/2018 at 13:25 ECG Data Interpretation: Sinus tachycardia, rate 104, MA interval 164, QTC 402. No ectopy, no ST depression or ST elevation. T-wave inversion noted in lead 3. EKG was also viewed by Dr. Quinones. MDM Narrative Medical decision making narrative: Differential includes pancreatitis (possible due to elevation in lipase, abdominal discomfort, history of alcohol abuse--however patient is able to tolerate fluids p.o., he has not vomited for the past few days, and is a candidate for outpatient referral), colitis (chronic diarrhea, blood in stool, history of alcohol abuse, history of abdominal cramping), GERD (epigastric pain, complains of blood in his stool, history of alcoholism), malignancy (less likely due to lack of findings on CT, however due to blood a colonoscopy needed to fully rule out this diagnosis). Low concern for alcoholic DTs as CIWA score 0 and patient stated his last drink was over 4 days ago. Strict return precautions given and follow-up instructions discussed. <Maddie Quinones MD - Last Filed: 11/08/18 07:11> Lab Data Labs: Lab Results 11/07/18 11/07/18 11/07/18 Range/Units 12:30 12:30 13:26 WBC 11.3 H (4.5-11.0) X10^3/uL RBC 5.24 (4.5-5.9) X10^6/uL Hgb 18.2 H (13.5-17.5) g/dL Hct 51.5 (41-53) % MCV 98.4 (80-100) fL MCH 34.7 H (26-34) PG MCHC 35.3 (30-36) % RDW 12.7 (11.6-14.8) % Plt Count 147 L (150-400) X10^3/uL Neut % (Auto) 85.9 H (50-75) % Lymph % (Auto) 10.3 L (25-40) % Rains % (Auto) 3.2 (3-14) % Eos % (Auto) 0.2 L (2-4) % Baso % (Auto) 0.4 (0-2) % Neut # (Auto) 9700 H (8337-2442) /uL Lymph # (Auto) 1200 (4765-8123) /uL Rains # (Auto) 400 (0-900) /uL Eos # (Auto) 0 (0-450) /uL Baso # (Auto) 0 (0-100) /uL Sodium 138 (137-145) mmol/L Potassium 3.2 L (3.4-5.1) mmol/L Chloride 100 (98-107) mmol/L Carbon Dioxide 25 (22-32) mmol/L BUN 16 (9-20) mg/dL Creatinine 1.30 H (0.66-1.25) mg/dL Estimated GFR > 60.0 (>60) mL/min BUN/Creatinine Ratio 12.3 (6-22) Glucose 142 H (70-100) mg/dL Calcium 9.5 (8.4-10.2) mg/dL Total Bilirubin 1.2 (0.2-1.3) mg/dL AST 79 H (17-59) IU/L ALT 64 (21-72) IU/L Alkaline Phosphatase 103 (38-126) U/L Total Protein 7.4 (6.3-8.2) g/dL Albumin 4.3 (3.5-5.0) g/dL Globulin 3.1 (1.7-4.1) g/dL Albumin/Globulin Ratio 1.4 (1.0-2.8) Lipase 356 H D (23-300) U/L C. difficile Tox (PCR) Cancelled Urine Dip Bedside Urine Glucose Negative Bedside Urine Bilirubin - Negative Bedside Urine Ketone - Negative Urine Specific [place] 1.005 Bedside Urine Occult Blood - Negative Bedside Urine pH 6.0 Bedside Urine Protein - Negative Bedside Urine Urobilinogen - Negative Bedside Urine Nitrite - Negative Bedside Urine Leukocytes - Negative Esterase Discharge Plan Departure Patient Disposition: Home Clinical Impression: Acute diarrhea, Elevated lipase, Blood in stool Discharge Date/Time: 11/07/18 15:36 Instructions: Acute Pancreatitis, Diarrhea, DI for Alcohol Abuse Activity Restrictions/Additional Instructions: Thank you for entrusting me with your care today. As discussed, your lipase level was elevated from the last visit, this may suggest early pancreatitis. Please drink only clear liquids for the next 24 hours. Call the surgeon today or tomorrow to schedule a endoscopy and colonoscopy. The phone number is [phone]. Return to the emergency department if you develop uncontrollable vomiting, worsening or severe abdominal pain, dizziness, chest pain, shortness of breath, or other concerning symptoms. Additionally, I suggest you follow up with your primary care provider in the next week and to discuss decreasing alcohol intake. I prescribed you omeprazole, please continue to take 1 tab daily for bloody stools. Prescriptions: New omeprazole 40 mg capsule,delayed release(DR/EC) 40 mg PO DAILY Qty: 30 RF: 0 No Action ibuprofen 800 mg Tablet 800 mg PO BID RF: 0 nadolol 20 mg tablet 20 mg PO DAILY RF: 0 omeprazole 20 mg capsule,delayed release(DR/EC) 20 mg PO DAILY Qty: 60 RF: 0 ondansetron 4 mg tablet,disintegrating 4 mg PO Q6H PRN (Reason: nausea and vomiting) Qty: 14 RF: 0 trazodone 100 mg tablet 100 mg PO DAILY RF: 0 amlodipine 10 mg tablet 10 mg PO DAILY RF: 0 lisinopril 10 mg tablet 10 mg PO DAILY RF: 0 hydrochlorothiazide 25 mg tablet 25 mg PO DAILY RF: 0 Referrals: Kee Stroud MD [Physician] - (Elevated lipase, blood stools x 17 days. Please consider for colonoscopy and endoscopy.) Diana Arndt MD [Primary Care Provider] -
[2018-11-07 12:40] LABS: Add Manual Diff / Slide Review NO; Basophils Absolute Auto 0 /uL (0-100); Basophils Percent Auto 0.4 % (0-2); Eosinophils Absolute Auto 0 /uL (0-450); Eosinophils Percent Auto 0.2 % (2-4); Hematocrit 51.5 % (41-53); Hemoglobin 18.2 g/dL (13.5-17.5); Lymphocytes Absolute Auto 1200 /uL (1100-4500); Lymphocytes Percent Auto 10.3 % (25-40); Mean Corpuscular HGB Conc 35.3 % (30-36); Mean Corpuscular Hemoglobin 34.7 PG (26-34); Mean Corpuscular Volume 98.4 fL (80-100); Monocytes Absolute Auto 400 /uL (0-900); Monocytes Percent Auto 3.2 % (3-14); Neutrophils Absolute Auto 9700 /uL (1500-7000); Neutrophils Percent Auto 85.9 % (50-75); Platelet Count 147 X10^3/uL (150-400); Red Blood Cell Count 5.24 X10^6/uL (4.5-5.9); Red Cell Distribution Width 12.7 % (11.6-14.8); White Blood Cell Count 11.3 X10^3/uL (4.5-11.0)
[2018-11-07] MEDS: SODIUM CHLORIDE 0.9% 1,000 ML 1000 ML IV (12:43)
[2018-11-07] MEDS: PANTOPRAZOLE 40 MG VIAL IV (12:43)
[2018-11-07 12:55] LABS: Alanine Aminotransferase 64 IU/L (21-72); Albumin 4.3 g/dL (3.5-5.0); Albumin Globulin Ratio 1.4 (1.0-2.8); Alkaline Phosphatase 103 U/L (38-126); Aspartate Aminotransferase 79 IU/L (17-59); BUN Creatinine Ratio 12.3 (6-22); Bilirubin Total 1.2 mg/dL (0.2-1.3); Blood Urea Nitrogen 16 mg/dL (9-20); Calcium 9.5 mg/dL (8.4-10.2); Carbon Dioxide 25 mmol/L (22-32); Chloride 100 mmol/L (98-107); Estimated Glomerular Filt Rate > 60.0 mL/min (>60); Globulin 3.1 g/dL (1.7-4.1); Glucose 142 mg/dL (70-100); HEMOLYSIS 35 (0-50); Lipase 356 U/L (23-300); Potassium 3.2 mmol/L (3.4-5.1); Sodium 138 mmol/L (137-145); Total Protein 7.4 g/dL (6.3-8.2)
--- NOTE | 2018-11-07 13:08 | DI.CT.S_ITS ---
PROCEDURE: CT ABDOMEN PELVIS W CON INDICATIONS: Epigastric abd px x 3 weeks, 3rd visit to ED, bloody stool TECHNIQUE: After the administration of intravenous contrast, 5 mm thick sections acquired from the diaphragm to the symphysis. 5 mm coronal and sagittal reformats were acquired. For radiation dose reduction, the following was used: automated exposure control, adjustment of mA and/or kV according to patient size. COMPARISON: None. FINDINGS: Image quality: Excellent. ABDOMEN: Lung bases: Lung bases are clear. Heart size is normal. Solid organs: Diffuse hepatic steatosis with enlargement of the left lobe of the liver. No focal suspicious liver mass. Gallbladder is unremarkable. Biliary system is non dilated. Pancreas enhances normally. Spleen is normal in size and enhancement. No adrenal nodules. Kidneys demonstrate normal size and enhancement, without hydronephrosis. Peritoneum and bowel: Bowel loops demonstrate normal wall thickness and caliber. No free fluid or air. Sigmoid diverticulosis without evidence of diverticulitis. Nodes and vessels: No retroperitoneal or mesenteric adenopathy by size criteria. Aorta and inferior vena cava are normal in size. Miscellaneous: No ventral hernias. PELVIS: Genitourinary: Bladder wall thickness is normal. Miscellaneous: Bilateral inguinal hernias containing fat. Bones: No suspicious bony lesions. No vertebral body compression fractures. Calcified right paracentral disc protrusion at L5-S1 significantly impinges on the right S1 and possibly S2 nerve roots in the right lateral recess. IMPRESSION: 1. Diffuse hepatic steatosis with enlargement of the left lobe of the liver. 2. Sigmoid diverticulosis. 3. Calcified right paracentral disc protrusion at L5-S1 impinges on S1 and possibly S2 nerve roots in the right lateral recess. 4. Bilateral inguinal hernias containing fat. Dictated by: Jackson Turner M.D. on 11/07/2018 at 13:15 Approved by: Jackson Turner M.D. on 11/07/2018 at 13:25
[2018-11-07 13:44] VITALS: BP 134/69; PULSE 99; RESP 17; O2SAT 95
[2018-11-07 14:35] VITALS: BP 138/87; PULSE 90; RESP 18; O2SAT 96
== END 2018-11-07 15:36 | disposition home or self-care (01) ==
PROVIDERS: Emergency Provider Nurse Practitioner; PCP Family Medicine
DX: K92.1 Melena (principal); R19.7 Diarrhea, unspecified; R74.8 Abnormal levels of other serum enzymes
CPT/HCPCS: 36591; 74177; 80053; 81003; 83690; 85025; 87045; 87899; 93005; 93010; 96361; 96374; 99283; 99285; C9113; Q9967

== ENCOUNTER 2018-12-22 12:33 | Emergency (ER) | payer OTHER, MEDICAID, SELFPAY ==
[2018-12-22 12:39] VITALS: BP 172/109; PULSE 101; RESP 18; TEMP 36.6; O2SAT 97
--- NOTE | 2018-12-22 13:07 | ED.ABDPAIN ---
HPI - Abdominal Pain <CARROLL Lema - Last Filed: 12/22/18 15:26> General Chief Complaint: Abdominal Pain Stated Complaint: ?pancreatitis x3 days Time Seen by Provider: 12/22/18 12:46 Source: patient Mode of arrival: Ambulatory Limitations: no limitations History of Present Illness HPI narrative: 43-year-old male with a history of alcoholism, presents to the emergency depart complaining of left upper quadrant abdominal pain for the past 2 days. He states he was seen in October, had not had a drink since then until last week he had 1 [employer] lemonade. he had 18 hours of vomiting with diarrhea, and proceeding that he developed left upper quadrant pain. He states the vomiting has stopped but he continued to have diarrhea and abdominal pain. He states his pain is a 4/10 that is worse with palpation. He has been eating crackers and drinking small sips of water which he was able to keep down. Patient denies any fevers, chills, dizziness, chest pain, shortness of breath, vomiting at this time, pain in urination, hematuria, or melena. Related Data Home Medications Medication Instructions Recorded Confirmed ibuprofen 800 mg PO BID 04/14/18 11/07/18 nadolol 20 mg PO DAILY 04/14/18 amlodipine 10 mg PO DAILY 11/07/18 11/07/18 hydrochlorothiazide 25 mg PO DAILY 11/07/18 11/07/18 lisinopril 10 mg PO DAILY 11/07/18 11/07/18 trazodone 100 mg PO DAILY 11/07/18 11/07/18 Previous Rx's Medication Instructions Recorded omeprazole 20 mg PO DAILY #60 cap 11/05/18 ondansetron 4 mg PO Q6H PRN #14 tab 11/05/18 omeprazole 40 mg PO DAILY #30 cap 11/07/18 hydrocodone-acetaminophen [Cressey] 1 tab PO BID PRN #10 tab 12/22/18 ondansetron 4 mg PO Q8H #10 tab 12/22/18 Allergies Allergy/AdvReac Type Severity Reaction Status Date / Time varenicline [From CHANTIX] AdvReac Intermediate SUICIDAL Verified 12/22/18 12:43 Review of Systems <CARROLL Lema - Last Filed: 12/22/18 15:26> Review of Systems Narrative: REVIEW OF SYSTEMS: GENERAL: Denies fever, chills, malaise, or wt. loss. HENT: No head trauma, sore throat, or dysphagia. EYES: No loss of vision, double vision, eye pain, or irritation. CARDIOVASCULAR: No chest pain, palpitations, or orthopnea. RESPIRATORY: No shortness of breath or cough. GASTROINTESTINAL: Complains of abdominal pain, see HPI GENITOURINARY: No flank pain, urinary incontinence, hesitancy, frequency, or dysuria. MUSCULOSKELETAL: No pain, weakness, or trauma. INTEGUMENTARY: No rash, lesions, or pruritus. NEURO: No numbness, tingling, memory loss, confusion, or headaches. PSYCH: No behavior or mood changes. Patient History <CARROLL Lema - Last Filed: 12/22/18 15:26> Social History Smoking Status: Current every day smoker Tobacco: How many years used: 20 quit status: considering quitting second hand exposure: No alcohol intake: current substance use type: marijuana alcohol intake frequency: other Substance Use Type: does not use Exam <CARROLL Lema - Last Filed: 12/22/18 15:26> Narrative Exam Narrative: PHYSICAL EXAMINATION: GENERAL: Well groomed, alert, and cooperative. Answers questions promptly and appropriately. Vital signs noted. HENT: Normocephalic, atraumatic. Hearing intact. Oral mucosa is pink and moist. EYES: Conjunctiva pink, sclera white, no periorbital swelling. CARDIOVASCULAR: S1 and S2 sounds normal. Regular rate and rhythm, no murmurs, clicks, or bruits. No pedal edema. RESPIRATORY: Normal respiratory rate, trachea midline, airway patent. No stridor, nasal flaring or accessory muscle use. Lungs are clear in all shah without wheeze, rhonchi, or crackles. GASTROINTESTINAL: Bowel sounds normoactive. Abdomen is soft, slight diffuse tenderness to epigastric area and left upper quadrant.. No organomegaly, no palpable masses. GENITALURINARY: No flank tenderness. MUSCULOSKELETAL: Normal gait and coordination. Equal tone and mass bilaterally. EXTREMITIES: CMS intact, no pedal edema. SKIN: Warm, dry, soft, appropriate color for ethnicity. No lesions, rashes, or wounds. NEURO: Alert and Oriented X 3. Good coordination. No ataxia, or sensory deficits, or cognitive issues. PSYCH: Appropriate affect and mood. Initial Vital Signs Initial Vital Signs: Vital Signs Temperature 97.9 F 12/22/18 12:39 Pulse Rate 101 H 12/22/18 12:39 Respiratory Rate 18 12/22/18 12:39 Blood Pressure 172/109 H 12/22/18 12:39 Pulse Oximetry 97 12/22/18 12:39 <Allie Carrero DO - Last Filed: 12/22/18 16:24> Initial Vital Signs Initial Vital Signs: Vital Signs Temperature 97.9 F 12/22/18 12:39 Pulse Rate 101 H 12/22/18 12:39 Respiratory Rate 18 12/22/18 12:39 Blood Pressure 172/109 H 12/22/18 12:39 Pulse Oximetry 97 12/22/18 12:39 Course <CARROLL Lema - Last Filed: 12/22/18 15:26> Course Course Narrative: Patient was was given IV fluid, Zofran, and Toradol which improved his pain. Patient was requesting more pain medication, he was given a 2 mg dose of morphine which illness completely relieved his pain. He was able to drink fluids without vomiting in the emergency department. Patient stated he has an appointment with his primary care provider on Monday or Monday and understands the importance of follow-up. Orders Ordered: ED Orders 12/22/18 13:00 Complete Blood Count AUTO DIFF Stat Comprehensive Metabolic Panel Stat Lipase Stat 12/22/18 13:30 US abdomen limited Stat 12/22/18 13:38 Amylase Stat 12/22/18 14:20 Urine Culture Stat Urine Microscopic Stat Discontinued Medications Sodium Chloride (Normal Saline 0.9%) 500 mls @ 1,000 mls/hr IV BOLUS ONE Stop: 12/22/18 13:37 Last Infusion: 12/22/18 14:34 Dose: 0 mls/hr Documented by: Admin: 12/22/18 13:39 Dose: 1,000 mls/hr Documented by: JERSEY Ketorolac Tromethamine (Toradol) 30 mg IV NOW ONE Stop: 12/22/18 13:06 Last Admin: 12/22/18 13:39 Dose: 30 mg Documented by: JERSEY Morphine Sulfate (Morphine) 2 mg IV NOW ONE Stop: 12/22/18 14:26 Last Admin: 12/22/18 14:48 Dose: 2 mg Documented by: JERSEY Ondansetron HCl (Zofran) 4 mg IV NOW ONE Stop: 12/22/18 13:06 Last Admin: 12/22/18 13:39 Dose: 4 mg Documented by: JERSEY Consultations Consultation #1: Patient was staffed with Dr. Carrero. Vital Signs Vital signs: Vital Signs - 8 hr 12/22/18 12:39 12/22/18 13:45 12/22/18 14:45 Temperature 97.9 F Pulse Rate 101 H 95 H 98 H Respiratory Rate 18 17 18 Blood Pressure 172/109 H Blood Pressure [Left Arm] 161/97 H 156/95 H Pulse Oximetry 97 96 97 <Allie Carrero, - Last Filed: 12/22/18 16:24> Orders Ordered: ED Orders 12/22/18 13:00 Complete Blood Count AUTO DIFF Stat Comprehensive Metabolic Panel Stat Lipase Stat 12/22/18 13:30 US abdomen limited Stat 12/22/18 13:38 Amylase Stat 12/22/18 14:20 Urine Culture Stat Urine Microscopic Stat Discontinued Medications Sodium Chloride (Normal Saline 0.9%) 500 mls @ 1,000 mls/hr IV BOLUS ONE Stop: 12/22/18 13:37 Last Infusion: 12/22/18 14:34 Dose: 0 mls/hr Documented by: Admin: 12/22/18 13:39 Dose: 1,000 mls/hr Documented by: JERSEY Ketorolac Tromethamine (Toradol) 30 mg IV NOW ONE Stop: 12/22/18 13:06 Last Admin: 12/22/18 13:39 Dose: 30 mg Documented by: JERSEY Morphine Sulfate (Morphine) 2 mg IV NOW ONE Stop: 12/22/18 14:26 Last Admin: 12/22/18 14:48 Dose: 2 mg Documented by: JERSEY Ondansetron HCl (Zofran) 4 mg IV NOW ONE Stop: 12/22/18 13:06 Last Admin: 12/22/18 13:39 Dose: 4 mg Documented by: JERSEY Vital Signs Vital signs: Vital Signs - 8 hr 12/22/18 12:39 12/22/18 13:45 12/22/18 14:45 Temperature 97.9 F Pulse Rate 101 H 95 H 98 H Respiratory Rate 18 17 18 Blood Pressure 172/109 H Blood Pressure [Left Arm] 161/97 H 156/95 H Pulse Oximetry 97 96 97 MDM - Abdominal Pain <Rhonda Ferreira [employer] - Last Filed: 12/22/18 15:26> Medical Records Attestation: I reviewed the patient's medical records. Lab Data Attestation: I reviewed the patient's lab results. Result diagrams: 12/22/18 13:00 12/22/18 13:00 Labs: Lab Results 12/22/18 12/22/18 12/22/18 Range/Units 13:00 13:00 13:38 WBC 15.6 H (4.5-11.0) X10^3/uL RBC 5.07 (4.5-5.9) X10^6/uL Hgb 17.4 (13.5-17.5) g/dL Hct 49.0 (41-53) % MCV 96.7 (80-100) fL MCH 34.3 H (26-34) PG MCHC 35.5 (30-36) % RDW 12.9 (11.6-14.8) % Plt Count 126 L (150-400) X10^3/uL Neut % (Auto) 90.0 H (50-75) % Lymph % (Auto) 4.7 L (25-40) % [place] % (Auto) 5.0 (3-14) % Eos % (Auto) 0.1 L (2-4) % Baso % (Auto) 0.2 (0-2) % Neut # (Auto) 61815 H (4516-2159) /uL Lymph # (Auto) 700 L (7118-1166) /uL [place] # (Auto) 800 (0-900) /uL Eos # (Auto) 0 (0-450) /uL Baso # (Auto) 0 (0-100) /uL Sodium 136 L (137-145) mmol/L Potassium 3.8 (3.4-5.1) mmol/L Chloride 105 (98-107) mmol/L Carbon Dioxide 20 L (22-32) mmol/L BUN 9 (9-20) mg/dL Creatinine 0.80 (0.66-1.25) mg/dL Estimated GFR > 60.0 (>60) mL/min BUN/Creatinine Ratio 11.3 (6-22) Glucose 129 H (70-100) mg/dL Calcium 9.1 (8.4-10.2) mg/dL Total Bilirubin 2.0 H (0.2-1.3) mg/dL AST 41 (17-59) IU/L ALT 48 (21-72) IU/L Alkaline Phosphatase 94 (38-126) U/L Total Protein 7.3 (6.3-8.2) g/dL Albumin 4.1 (3.5-5.0) g/dL Globulin 3.2 (1.7-4.1) g/dL Albumin/Globulin Ratio 1.3 (1.0-2.8) Amylase 98 (30-110) U/L Lipase 323 H (23-300) U/L Urine RBC (0-5/HPF) Urine WBC (0-5/HPF) Ur Squamous Epith Cells (0-5/HPF) Urine Bacteria (None) Urine Mucus (Negative) Ur Culture Indicated? 12/22/18 Range/Units 14:20 WBC (4.5-11.0) X10^3/uL RBC (4.5-5.9) X10^6/uL Hgb (13.5-17.5) g/dL Hct (41-53) % MCV (80-100) fL MCH (26-34) PG MCHC (30-36) % RDW (11.6-14.8) % Plt Count (150-400) X10^3/uL Neut % (Auto) (50-75) % Lymph % (Auto) (25-40) % [place] % (Auto) (3-14) % Eos % (Auto) (2-4) % Baso % (Auto) (0-2) % Neut # (Auto) (9881-3520) /uL Lymph # (Auto) (2764-5385) /uL [place] # (Auto) (0-900) /uL Eos # (Auto) (0-450) /uL Baso # (Auto) (0-100) /uL Sodium (137-145) mmol/L Potassium (3.4-5.1) mmol/L Chloride (98-107) mmol/L Carbon Dioxide (22-32) mmol/L BUN (9-20) mg/dL Creatinine (0.66-1.25) mg/dL Estimated GFR (>60) mL/min BUN/Creatinine Ratio (6-22) Glucose (70-100) mg/dL Calcium (8.4-10.2) mg/dL Total Bilirubin (0.2-1.3) mg/dL AST (17-59) IU/L ALT (21-72) IU/L Alkaline Phosphatase (38-126) U/L Total Protein (6.3-8.2) g/dL Albumin (3.5-5.0) g/dL Globulin (1.7-4.1) g/dL Albumin/Globulin Ratio (1.0-2.8) Amylase (30-110) U/L Lipase (23-300) U/L Urine RBC 1-5/hpf (0-5/HPF) Urine WBC 1-5/hpf (0-5/HPF) Ur Squamous Epith Cells 0-1 /hpf (0-5/HPF) Urine Bacteria Occasional (0-1) (None) Urine Mucus 3+ H (Negative) Ur Culture Indicated? Specimen cultured Point of care testing: Urine Dip Bedside Urine Glucose Negative Bedside Urine Bilirubin - Negative Bedside Urine Ketone +/- 5 Urine Specific [place] 1.015 Bedside Urine Occult Blood +/- Bedside Urine pH 6.0 Bedside Urine Protein + 30 Bedside Urine Urobilinogen +/- 1mg Bedside Urine Nitrite - Negative Bedside Urine Leukocytes + 70 Esterase Imaging Data US Abd: Radiologist's impression: [address] [id number] Ultrasound Report Signed Patient: Alex Peoples [facility]#: [id number] : 1975Acct:[id number] Age/Sex: 43 / MDate of Service: 12/22/18 Loc: ED Accession Number: [id number] Procedure: US abdomen limited Ordering Provider: Rhonda Ferreira PROCEDURE: US ABDOMEN LIMITED INDICATIONS: EPIGASTRIC PAIN TECHNIQUE: Real-time focused scanning was performed of the abdomen, with image documentation. COMPARISON: [facility], CT, CT ABDOMEN PELVIS W CON, 11/07/2018, 12:48. [facility], US, US ABDOMEN COMPLETE, 04/15/2018, 1:26. FINDINGS: Sludge is seen within the gallbladder. The gallbladder wall is not thickened, measuring 3 mm or less. No specific pericholecystic fluid is seen. The sonographic Huggins sign is negative. The liver demonstrates prominent size. The liver demonstrates generalized increased echogenicity. This decreases ultrasound sensitivity for detection of hepatic masses. There is no biliary dilatation, the common bile duct measures 6 mm. The pancreas is obscured by bowel gas. IMPRESSION: The pancreas is obscured by bowel gas on this study. Sludge is seen within the gallbladder, without additional sonographic signs of cholecystitis. No biliary dilatation. The liver demonstrates increased echogenicity. This finding is nonspecific, yet it is most commonly attributed to fatty infiltration. Dictated by: Bhavesh Mendoza M.D. on 12/22/2018 at 13:38 Approved by: Bhavesh Mendoza M.D. on 12/22/2018 at 13:39 MDM Narrative Medical decision making narrative: History and examination are suspicious for alcoholic pancreatitis (elevated lipase, history of alcoholism, recent consumption of an alcoholic beverage, normal amylase). Differential includes infectious pancreatitis and cholecystitis. However, no gallbladder thickening, no ductal dilation, no stones visualized, and no right upper quadrant/colicky pain. Less likely infectious, even the patient's white blood cell count was elevated, patient does not exhibit a extremely tender exam and he exhibits no systemic signs of infection such as fevers. Patient is a candidate for outpatient treatment as he is able to tolerate fluids and food without vomiting and no other indications of organ failure. Strict follow-up instructions were to be evaluated by his primary care provider in the next week. Strict ED precautions were given for new or worsening symptoms. Patient was instructed to remain on a clear liquid diet for 1-2 days, and progressed to the brat diet as tolerated. He was given ondansetron and Vicodin to manage symptoms. Patient was highly encouraged to avoid drinking any amount of alcohol. <Allie Carrero, DO - Last Filed: 12/22/18 16:24> Lab Data Attestation: I reviewed the patient's lab results. Labs: Lab Results 12/22/18 12/22/18 12/22/18 Range/Units 13:00 13:00 13:38 WBC 15.6 H (4.5-11.0) X10^3/uL RBC 5.07 (4.5-5.9) X10^6/uL Hgb 17.4 (13.5-17.5) g/dL Hct 49.0 (41-53) % MCV 96.7 (80-100) fL MCH 34.3 H (26-34) PG MCHC 35.5 (30-36) % RDW 12.9 (11.6-14.8) % Plt Count 126 L (150-400) X10^3/uL Neut % (Auto) 90.0 H (50-75) % Lymph % (Auto) 4.7 L (25-40) % [place] % (Auto) 5.0 (3-14) % Eos % (Auto) 0.1 L (2-4) % Baso % (Auto) 0.2 (0-2) % Neut # (Auto) 34564 H (5697-6849) /uL Lymph # (Auto) 700 L (8602-5721) /uL [place] # (Auto) 800 (0-900) /uL Eos # (Auto) 0 (0-450) /uL Baso # (Auto) 0 (0-100) /uL Sodium 136 L (137-145) mmol/L Potassium 3.8 (3.4-5.1) mmol/L Chloride 105 (98-107) mmol/L Carbon Dioxide 20 L (22-32) mmol/L BUN 9 (9-20) mg/dL Creatinine 0.80 (0.66-1.25) mg/dL Estimated GFR > 60.0 (>60) mL/min BUN/Creatinine Ratio 11.3 (6-22) Glucose 129 H (70-100) mg/dL Calcium 9.1 (8.4-10.2) mg/dL Total Bilirubin 2.0 H (0.2-1.3) mg/dL AST 41 (17-59) IU/L ALT 48 (21-72) IU/L Alkaline Phosphatase 94 (38-126) U/L Total Protein 7.3 (6.3-8.2) g/dL Albumin 4.1 (3.5-5.0) g/dL Globulin 3.2 (1.7-4.1) g/dL Albumin/Globulin Ratio 1.3 (1.0-2.8) Amylase 98 (30-110) U/L Lipase 323 H (23-300) U/L Urine RBC (0-5/HPF) Urine WBC (0-5/HPF) Ur Squamous Epith Cells (0-5/HPF) Urine Bacteria (None) Urine Mucus (Negative) Ur Culture Indicated? 12/22/18 Range/Units 14:20 WBC (4.5-11.0) X10^3/uL RBC (4.5-5.9) X10^6/uL Hgb (13.5-17.5) g/dL Hct (41-53) % MCV (80-100) fL MCH (26-34) PG MCHC (30-36) % RDW (11.6-14.8) % Plt Count (150-400) X10^3/uL Neut % (Auto) (50-75) % Lymph % (Auto) (25-40) % [place] % (Auto) (3-14) % Eos % (Auto) (2-4) % Baso % (Auto) (0-2) % Neut # (Auto) (4974-7895) /uL Lymph # (Auto) (5701-9365) /uL [place] # (Auto) (0-900) /uL Eos # (Auto) (0-450) /uL Baso # (Auto) (0-100) /uL Sodium (137-145) mmol/L Potassium (3.4-5.1) mmol/L Chloride (98-107) mmol/L Carbon Dioxide (22-32) mmol/L BUN (9-20) mg/dL Creatinine (0.66-1.25) mg/dL Estimated GFR (>60) mL/min BUN/Creatinine Ratio (6-22) Glucose (70-100) mg/dL Calcium (8.4-10.2) mg/dL Total Bilirubin (0.2-1.3) mg/dL AST (17-59) IU/L ALT (21-72) IU/L Alkaline Phosphatase (38-126) U/L Total Protein (6.3-8.2) g/dL Albumin (3.5-5.0) g/dL Globulin (1.7-4.1) g/dL Albumin/Globulin Ratio (1.0-2.8) Amylase (30-110) U/L Lipase (23-300) U/L Urine RBC 1-5/hpf (0-5/HPF) Urine WBC 1-5/hpf (0-5/HPF) Ur Squamous Epith Cells 0-1 /hpf (0-5/HPF) Urine Bacteria Occasional (0-1) (None) Urine Mucus 3+ H (Negative) Ur Culture Indicated? Specimen cultured Point of care testing: Urine Dip Bedside Urine Glucose Negative Bedside Urine Bilirubin - Negative Bedside Urine Ketone +/- 5 Urine Specific [place] 1.015 Bedside Urine Occult Blood +/- Bedside Urine pH 6.0 Bedside Urine Protein + 30 Bedside Urine Urobilinogen +/- 1mg Bedside Urine Nitrite - Negative Bedside Urine Leukocytes + 70 Esterase MDM Narrative Medical decision making narrative: patient case was reviewed. He does have elevated bilirubin, lipase has improved from prior pancreatitis, wbc is 15, platelets are 126, lft's otherwise normal except for bilirubin. patient US shows sludge, more left sided tenderness, pancreas not well visuzliaed and liver demonstrates increased echogenicity. Plan for short term follow up. Patient encouraged to quick drinking as well. Discharge Plan Departure Patient Disposition: Home Clinical Impression: Elevated bilirubin Pancreatitis Qualifiers: Chronicity: acute Pancreatitis type: alcohol induced Acute pancreatitis complication: unspecified Qualified Code(s): K85.20 - Alcohol induced acute pancreatitis without necrosis or infection Discharge Date/Time: 12/22/18 15:19 Instructions: Acute Pancreatitis Activity Restrictions/Additional Instructions: Thank you for entrusting me with your care today. As discussed, your symptoms are most likely caused by pancreatitis. It is possible this is due from the alcohol that was consumed a while ago. I recommend abstaining from drinking any alcohol and drink clear liquids for the next 1-2 days. After that, you may consume non-irritating foods such as bananas, apples, rice, and toast. Please follow up with your primary care provider in the next week for re-evaluation of your bilirubin and lipase. Return to the emergency department immediately if you develop worsening symptoms such as increased abdominal pain, uncontrollable vomiting, high fevers, dizziness, chest pain, works at [employer]. You have been prescribed a narcotic medication, this medication can make you drowsy. Do not drive while using this medication or perform activities that require mental alertness. These medications can also make you constipated, please use [id number] docusate sodium as needed for constipation. Prescriptions: New hydrocodone-acetaminophen [Cressey] 5-325 mg tablet 1 tab PO BID PRN (Reason: pain) Qty: 10 RF: 0 ondansetron 4 mg tablet,disintegrating 4 mg PO Q8H Qty: 10 RF: 0 No Action ibuprofen 800 mg Tablet 800 mg PO BID RF: 0 nadolol 20 mg tablet 20 mg PO DAILY RF: 0 omeprazole 20 mg capsule,delayed release(DR/EC) 20 mg PO DAILY Qty: 60 RF: 0 ondansetron 4 mg tablet,disintegrating 4 mg PO Q6H PRN (Reason: nausea and vomiting) Qty: 14 RF: 0 trazodone 100 mg tablet 100 mg PO DAILY RF: 0 amlodipine 10 mg tablet 10 mg PO DAILY RF: 0 lisinopril 10 mg tablet 10 mg PO DAILY RF: 0 hydrochlorothiazide 25 mg tablet 25 mg PO DAILY RF: 0 omeprazole 40 mg capsule,delayed release(DR/EC) 40 mg PO DAILY Qty: 30 RF: 0 Referrals: Diana Arndt MD [Primary Care Provider] -
[2018-12-22 13:09] LABS: Add Manual Diff / Slide Review NO; Basophils Absolute Auto 0 /uL (0-100); Basophils Percent Auto 0.2 % (0-2); Eosinophils Absolute Auto 0 /uL (0-450); Eosinophils Percent Auto 0.1 % (2-4); Hemoglobin 17.4 g/dL (13.5-17.5); Lymphocytes Absolute Auto 700 /uL (1100-4500); Lymphocytes Percent Auto 4.7 % (25-40); Mean Corpuscular HGB Conc 35.5 % (30-36); Mean Corpuscular Hemoglobin 34.3 PG (26-34); Mean Corpuscular Volume 96.7 fL (80-100); Monocytes Absolute Auto 800 /uL (0-900); Neutrophils Absolute Auto 14100 /uL (1500-7000); Platelet Count 126 X10^3/uL (150-400); Red Blood Cell Count 5.07 X10^6/uL (4.5-5.9); Red Cell Distribution Width 12.9 % (11.6-14.8); White Blood Cell Count 15.6 X10^3/uL (4.5-11.0)
[2018-12-22 13:22] LABS: Alanine Aminotransferase 48 IU/L (21-72); Albumin 4.1 g/dL (3.5-5.0); Albumin Globulin Ratio 1.3 (1.0-2.8); Alkaline Phosphatase 94 U/L (38-126); Aspartate Aminotransferase 41 IU/L (17-59); BUN Creatinine Ratio 11.3 (6-22); Blood Urea Nitrogen 9 mg/dL (9-20); Calcium 9.1 mg/dL (8.4-10.2); Carbon Dioxide 20 mmol/L (22-32); Chloride 105 mmol/L (98-107); Estimated Glomerular Filt Rate > 60.0 mL/min (>60); Globulin 3.2 g/dL (1.7-4.1); Glucose 129 mg/dL (70-100); HEMOLYSIS 49 (0-50); Lipase 323 U/L (23-300); Potassium 3.8 mmol/L (3.4-5.1); Sodium 136 mmol/L (137-145); Total Protein 7.3 g/dL (6.3-8.2)
--- NOTE | 2018-12-22 13:30 | DI.US.S_ITS ---
PROCEDURE: US ABDOMEN LIMITED INDICATIONS: EPIGASTRIC PAIN TECHNIQUE: Real-time focused scanning was performed of the abdomen, with image documentation. COMPARISON: [facility], CT, CT ABDOMEN PELVIS W CON, 11/07/2018, 12:48. [facility], US, US ABDOMEN COMPLETE, 04/15/2018, 1:26. FINDINGS: Sludge is seen within the gallbladder. The gallbladder wall is not thickened, measuring 3 mm or less. No specific pericholecystic fluid is seen. The sonographic Huggins sign is negative. The liver demonstrates prominent size. The liver demonstrates generalized increased echogenicity. This decreases ultrasound sensitivity for detection of hepatic masses. There is no biliary dilatation, the common bile duct measures 6 mm. The pancreas is obscured by bowel gas. IMPRESSION: The pancreas is obscured by bowel gas on this study. Sludge is seen within the gallbladder, without additional sonographic signs of cholecystitis. No biliary dilatation. The liver demonstrates increased echogenicity. This finding is nonspecific, yet it is most commonly attributed to fatty infiltration. Dictated by: Bhavesh Mendoza M.D. on 12/22/2018 at 13:38 Approved by: Bhavesh Mendoza M.D. on 12/22/2018 at 13:39
[2018-12-22] MEDS: KETOROLAC 60 MG/2 ML VIAL 30 MG IV (13:39)
[2018-12-22] MEDS: SODIUM CHLORIDE 0.9% 500 ML 1000 ML IV (13:39)
[2018-12-22] MEDS: ONDANSETRON 4 MG/2 ML INJ IV (13:39)
[2018-12-22 13:45] VITALS: BP 161/97; PULSE 95; RESP 17; O2SAT 96
[2018-12-22 13:48] LABS: Amylase 98 U/L (30-110)
[2018-12-22 14:45] VITALS: BP 156/95; PULSE 98; RESP 18; O2SAT 97
[2018-12-22] MEDS: MORPHINE 2 MG/ML INJ IV (14:48)
[2018-12-22 14:50] LABS: Bacteria Urine Occasional (0-1); Culture Indicated Urine Specimen Cultured; Mucus Urine 3+ (Negative); RBC Urine 1-5/HPF (0-5/HPF); Squamous Epithelial Cell Urine 0-1 /HPF (0-5/HPF); WBC Urine 1-5/HPF (0-5/HPF)
== END 2018-12-22 15:19 | disposition home or self-care (01) ==
PROVIDERS: Emergency Medicine; Emergency Provider Nurse Practitioner; PCP Family Medicine
DX: R17 Unspecified jaundice (principal); K85.20 Alcohol induced acute pancreatitis without necrosis or infection
CPT/HCPCS: 36415; 76705; 80053; 81003; 81015; 82150; 83690; 85025; 87077; 87086; 87186; 96361; 96374; 96375; 99283; 99284; J1885; J2270; J2405